=== PATIENT | female | born 1935 | race Asian ===

== ENCOUNTER 2021-02-15 23:47 | Emergency (ER) | payer MEDICARE, OTHER, SELFPAY ==
[~2021-02-15] VITALS: Ht 147.3 cm; Wt 63.5 kg
[2021-02-15 23:47] VITALS: BP_SYST 175
[~2021-02-15 23:47] MED LIST: LISI10TA29 PO
--- NOTE | 2021-02-16 00:22 | NUR ---
Patient to ER bed 4 to gown for evaluation. Side rails up.
--- NOTE | 2021-02-16 00:23 | NUR ---
Dr. Pelayo bedside for pt eval
[2021-02-16] MEDS ORDERED: ONDANSETRON HCL 4 MG/2 ML VIAL IVP ONE (01:15)
[2021-02-16] MEDS ORDERED: NACL 0.9% 1,000 ML IV ONE (01:15)
[2021-02-16] MEDS ORDERED: MORPHINE 4 MG INJ. 4 MG/ML VIAL IVP ONE (01:15)
[2021-02-16] MEDS ORDERED: DIPHENHYDRAMINE INJ 50 MG/ML VIAL IVP ONE (01:15)
--- NOTE | 2021-02-16 01:29 | NUR ---
PT TAKEN TO CT SCAN VIA GURNEY BY RADIOLOGY STAFF AND FAMILY AT BEDSIDE.
[2021-02-16 01:34] LABS: ANION GAP 13 (5-15); CALCIUM 10.4 mg/dL (8.4-11.0); CHLORIDE 98 mmol/L (98-107); CREATININE 0.93 mg/dL (0.55-1.30); GLUCOSE 238 mg/dL (70-99); POTASSIUM 3.5 mmol/L (3.5-5.1); SODIUM SERUM 140 mmol/L (136-145); UREA NITROGEN, BLOOD 16 mg/dL (8-21)
[2021-02-16 01:38] LABS: PROTHROMBIN TIME 10.4 SECS (9.5-12.5)
[2021-02-16 01:39] LABS: ALANINE AMINOTRANSFERASE 28 U/L (12-78); ALBUMIN 4.2 g/dL (3.4-4.8); ASPARTATE AMINOTRANSFERASE 23 U/L (10-37); LIPASE 546 U/L (73-393); TOTAL BILIRUBIN 0.4 mg/dL (0.0-1.0)
--- NOTE | 2021-02-16 01:50 | NUR ---
Pt back from Radiology in stable condition
--- NOTE | 2021-02-16 02:00 | NUR ---
PT BIB FAMILY TO ED C/O ABDOMINAL PAIN FOR LAST 1 HOUR WITH VOMITING X1 NO OTHER COMPLAINTS NOTED VSS NO S/S OF ACUTE DISTRESS RESTING ON GURNEY RAILS UP
[2021-02-16 02:19] LABS: BASOPHILS % (AUTO) 0.5 % (0.0-2.0); EOSINOPHILS % (AUTO) 0.5 % (0.0-4.0); HEMATOCRIT 35.5 % (36-48); LYMPHOCYTES % (AUTO) 15.1 % (20.5-51.5); MEAN CORPUSCULAR HEMOGLOBIN 30 pg (27-31); MEAN CORPUSCULAR HGB CONC 34 % (32-36); MEAN CORPUSCULAR VOLUME 89 fL (79.0-98.0); MONOCYTES # (AUTO) 0.2 K/uL (0.0-1.0); MONOCYTES % (AUTO) 3.1 % (1.7-9.3); NEUTROPHILS # (AUTO) 5.6 K/uL (1.8-7.7); NEUTROPHILS % (AUTO) 80.8 % (40.0-70.0); PLATELET COUNT (AUTO) 222 K/uL (130-430); RED BLOOD CELL COUNT(AUTO) 3.99 MIL/uL (4.2-6.2); RED CELL DISTRIBUTION WIDTH 13.2 % (9.0-15.0); WHITE BLOOD COUNT (AUTO) 6.9 K/uL (4.8-10.8)
--- NOTE | 2021-02-16 02:59 | NUR ---
VSS no s/s of acute distress Resting on gurney rails up
--- NOTE | 2021-02-16 03:37 | NUR ---
Dr. Pelayo bedside for pt update
[2021-02-16 04:15] LABS: BILIRUBIN,URINE NEGATIVE (NEGATIVE); BLOOD, URINE NEGATIVE (NEGATIVE); CLARITY/URINE SL CLOUDY (CLEAR); COLOR,URINE YELLOW (YELLOW); GLUCOSE,URINE 2+ (NEGATIVE); KETONES,URINE TRACE (NEGATIVE); LEUKOCYTE ESTERASE ,URINE NEGATIVE (NEGATIVE); NITRITE, URINE NEGATIVE (NEGATIVE); PH,URINE 7.5 (5.0-8.0); PROTEIN URINE NEGATIVE (NEGATIVE); UROBILINOGEN,URINE 0.2 (0.2-1.0)
[2021-02-16 04:26] LABS: BACTERIA,URINE FEW /HPF (None Seen); RBC,URINE 0-3 /HPF (0-3); WBC,URINE 0-3 /HPF (0-3)
[2021-02-16 04:45] VITALS: BP_SYST 175
--- NOTE | 2021-02-16 04:45 | NUR ---
Patient given written and verbal discharge instructions and verbalizes understanding. ER MD discussed with patient the results and treatment provided. Patient in stable condition. ID arm band removed. IV catheter removed intact and dressing applied, no active bleeding. Patient educated on pain management and to follow up with PMD. Pain Scale 0/10 Opportunity for questions provided and answered.
== END 2021-02-16 04:45 | disposition home or self-care (01) ==
LOC: SED 23:47
DX: K45.8 Other specified abdominal hernia without obstruction or gangrene (principal); K31.1 Adult hypertrophic pyloric stenosis; R10.84 Generalized abdominal pain; I10 Essential (primary) hypertension; E11.9 Type 2 diabetes mellitus without complications; Z79.899 Other long term (current) drug therapy; Z20.822 Contact with and (suspected) exposure to COVID-19
CPT/HCPCS: 36415; 74176; 76376; 80053; 81000; 83690; 85025; 85610; 85730; 87426; 99284; J1200; J2270; J2405